=== PATIENT | female | born 1965 | race Caucasian/White ===

== ENCOUNTER 2017-11-17 14:10 | Inpatient (IN) | payer OTHER ==
[~2017-11-17] VITALS: Ht 157.5 cm; Wt 76.2 kg
[2017-11-17 14:16] VITALS: Ht 157.5 cm; Wt 76.2 kg
[2017-11-17 15:18] LABS: CALCIUM 8.9 mg/dL (8.5-10.1); CARBON DIOXIDE 21.8 mmol/L (21-32); CHLORIDE SERUM 105 mmol/L (98-107); CREATININE SERUM 0.8 mg/dL (0.6-1.0); GFR1 > 60 mL/min; GLUCOSE SERUM 113 mg/dL (74-106); POTASSIUM SERUM 4.1 mmol/L (3.5-5.1); SODIUM SERUM 138 mmol/L (136-145)
[2017-11-17 15:27] LABS: ALKALINE PHOSPHATASE 101 U/L (46-116); AST/SGOT 901 U/L (15-37); BILIRUBIN TOTAL 0.5 mg/dL (0.20-1.00); LIPASE 37 IU/L (73-393)
[2017-11-17 15:28] LABS: ALBUMIN 3.3 g/dL (3.4-5.0); ALT/SGPT 1395 U/L (14-59)
[2017-11-17 15:34] LABS: BASOPHIL % 0.1 % (0-2); PLATELET COUNT 269 x10^3mcL (130-400); RED CELL DISTRIBUTION WIDTH 13.5 % (11.5-14.5)
[2017-11-17] MEDS ORDERED: SYNTHROID0.175 MG PO (16:55)
[2017-11-17] MEDS ORDERED: ESTRACE0.5 MG PO (16:56)
[2017-11-17] MEDS ORDERED: OMEPRAZOLE40 M1 PO (16:56)
[2017-11-17 17:48] LABS: microscopic required? YES; urine erythrocyte NEGATIVE (NEGATIVE)
[2017-11-17 17:55] VITALS: BP 122/79
[2017-11-17 18:02] LABS: AMPHETAMINE QUAL UR NONE DETECTED (NEG <=1000)
[2017-11-17 18:07] LABS: T3 TOTAL 0.91 ng/mL
[2017-11-17 18:13] LABS: CHOLESTEROL/HDL RATIO 3.4; PHOSPHOROUS 2.6 mg/dL (2.5-4.9)
[2017-11-17 18:37] LABS: FREE T4 2.09 ng/dL (0.76-1.46); FREE THYROXINE INDEX 5.2 ug/dL (1.4-4.5); T4(THYROXINE) 13.3 ug/dL (4.7-13.3)
[2017-11-17 19:57] VITALS: BP 129/90
[2017-11-18 05:38] VITALS: BP 138/86
[2017-11-18 06:59] LABS: CALCIUM 8.3 mg/dL (8.5-10.1); CARBON DIOXIDE 21.2 mmol/L (21-32); CHLORIDE SERUM 110 mmol/L (98-107); CREATININE SERUM 0.8 mg/dL (0.6-1.0); GFR1 > 60 mL/min; GLUCOSE SERUM 93 mg/dL (74-106); POTASSIUM SERUM 3.4 mmol/L (3.5-5.1); SODIUM SERUM 141 mmol/L (136-145)
[2017-11-18 07:03] LABS: BASOPHIL % 0.3 % (0-2); PLATELET COUNT 238 x10^3mcL (130-400); RED CELL DISTRIBUTION WIDTH 14.3 % (11.5-14.5)
[2017-11-18 08:35] VITALS: BP 120/70
[2017-11-18 09:52] VITALS: BP 120/70
[2017-11-18 12:48] LABS: BILIRUBIN DIRECT 0.11 mg/dL (0.0-0.2); BILIRUBIN TOTAL 0.3 mg/dL (0.20-1.00)
[2017-11-18 13:12] VITALS: BP 127/77
[2017-11-18 13:14] LABS: ALBUMIN 2.7 g/dL (3.4-5.0); TOTAL PROTEIN, SERUM 5.9 g/dL (6.4-8.2)
[2017-11-18 16:58] VITALS: BP 130/76
[2017-11-18 21:29] VITALS: BP 153/91
[2017-11-19 05:45] VITALS: BP 144/79
[2017-11-19 06:19] LABS: PLATELET COUNT 240 x10^3mcL (130-400); RED CELL DISTRIBUTION WIDTH 14.3 % (11.5-14.5)
[2017-11-19 06:22] LABS: CARBON DIOXIDE 22.9 mmol/L (21-32); CHLORIDE SERUM 109 mmol/L (98-107); CREATININE SERUM 0.8 mg/dL (0.6-1.0); GFR1 > 60 mL/min; GLUCOSE SERUM 130 mg/dL (74-106); MAGNESIUM 2.1 mg/dL (1.8-2.4); PHOSPHOROUS 3.4 mg/dL (2.5-4.9); POTASSIUM SERUM 4.2 mmol/L (3.5-5.1); SODIUM SERUM 142 mmol/L (136-145)
[2017-11-19 07:10] LABS: BASOPHIL % 0 % (0-2)
[2017-11-19 10:43] VITALS: BP 139/82
[2017-11-19] MEDS ORDERED: BEN10 PO (13:13)
[2017-11-19] MEDS ORDERED: CYCLOBENZAPRINE5 MG PO (13:15)
[2017-11-19] MEDS ORDERED: ROX5 PO (13:17)
[2017-11-19] MEDS ORDERED: ATI1 PO (13:18)
[2017-11-19] MEDS ORDERED: ZOF4 PO (13:23)
[2017-11-19 13:26] VITALS: BP 118/76
== END 2017-11-19 15:23 | disposition home or self-care (01) | DRG 393 ==
LOC: ED 14:10 → DU 16:51
PROVIDERS: Emergency Medicine; Family Medicine
DX: K92.89 Other specified diseases of the digestive system (principal); N17.0 Acute kidney failure with tubular necrosis; E44.1 Mild protein-calorie malnutrition; E05.00 Thyrotoxicosis with diffuse goiter without thyrotoxic crisis or storm; K21.9 Gastro-esophageal reflux disease without esophagitis; E87.6 Hypokalemia; E03.9 Hypothyroidism, unspecified; F17.200 Nicotine dependence, unspecified, uncomplicated; G25.81 Restless legs syndrome; E87.8 Other disorders of electrolyte and fluid balance, not elsewhere classified; E83.51 Hypocalcemia; K92.9 Disease of digestive system, unspecified; Z68.28 Body mass index [BMI] 28.0-28.9, adult
CPT/HCPCS: 83880; 84439; 87046; 87046-59; G0480; J1100; J1885; J7030; Q0092; Q0162